=== PATIENT | male | born 1995 | race Caucasian/White ===

== ENCOUNTER 2025-06-28 10:43 | Outpatient (OUT) | payer BC, SELFPAY ==
--- OUTSIDE RECORDS SUMMARY | 2025-06-28 10:00 | XMS_ITS | Encounter Summary ---
Author Organization [facility] Address [address] [place] [address] Care Team Providers Care Temporary Office Assistant Name Role Phone Unavailable Primary Care Provider Unavailabl e Reason for Referral * Consultation (Routine) - Authorized Specialty Diagnoses / Procedures Referred By Contac t Referred To Contact Gastroenterology Diagnoses Rectal bleeding Weight loss Procedures [place] OFFICE/OUTPATIENT NEW HIGH MDM 60 MINUTES Stephanie Morrow NP [address] [facility] [address] [place] [address] Phone: tel: fax: Dawna Flores MD [address] [place] [address], [address], [address] [address] Phone: tel: fax: Referral ID Status Reason Start Date Expiration Date Visits Requested Visits Authorized [id number] Authorized Specialty Services Required 06/28/2025 12/25/2025 1 1 * Consultation (Routine) - Pending Review Specialty Diagnoses / Procedures Referred By Contac t Referred To Contact General Surgery Diagnoses Rectal bleeding Procedures [place] OFFICE/OUTPATIENT NEW HIGH MDM 60 MINUTES Stephanie Morrow NP [address] [facility] [address] [place] [address] Phone: tel: fax: Fawad Santos, DO [address] [facility] [address] [place] [address] Phone: tel: fax: Referral ID Status Reason Start Date Expiration Date Visits Requested Visits Authorized [id number] Pending Review Specialty Services Required 06/28/2025 12/25/2025 1 1 Encounter Details Date Type Department Care Team (Late st Contact Info) Description 06/28/2025 10:00 AM EDT Office Visit [facility] [place] 112 [facility] [address] [place] [address] Stephanie Morrow NP [address] [facility] [address] [place] [address] Screening for lipid disorders (Primary Dx); Rectal bleeding; Weakness of both lower extremities; Pain of right middle finger; Weight loss; Family history of diabetes mellitus Social History Tobacco Use Types Packs/Day Years Used Date Smoking Tobacco: Former Cigarettes 2009 Smokeless Tobacco: Never Tobacco Cessation:Counseling Given: Yes Alcohol Use Standard Drinks/Week Comments Not Currently 0 (1 standard drink = 0.6 oz pur e alcohol) PHQ-2 Answer Date Recorded Patient Health Questionnaire-2 Score 0 06/28/2025 Sex and Gender Information Value Date Recorded Sex Assigned at Not on file Legal Sex Male 11:29 AM EDT Gender Identity Not on file Sexual Orientation Not on file documented as of this encounter Last Filed Vital Signs Vital Sign Reading Time Taken Comments Blood Pressure 120/78 06/28/2025 9:53 AM EDT Pulse 80 06/28/2025 9:53 AM EDT Temperature - - Respiratory Rate 16 06/28/2025 9:53 AM EDT Oxygen Saturation 98% 06/28/2025 9:53 AM EDT Inhaled Oxygen Concentration - - Weight 101 kg (223 lb) 06/28/2025 9:53 AM EDT Height 177.8 cm (5' 10 ) 06/28/2025 9:53 AM EDT Body Mass Index 32 06/28/2025 9:53 AM EDT documented in this encounter Functional Status * Over the past 2 weeks, how often have you been bothered by any of the following problems? Question Answer Date of Assessment Author Little interest or pleasure in doing things Not at all 06/28/2025 9:51 AM EDT STALIN ORELLANA Feeling down, depressed, or hopeless Not at all 06/01 9:51 AM EDT STALIN ORELLANA Patient Health Questionnaire-2 Score 0 06/01 9:51 AM EDT STALIN ORELLANA documented as of this encounter Plan of Treatment Scheduled Orders Name Type Priority Associated Diagnoses Orde r Schedule Comprehensive metabolic panel Lab Routine Rectal bleeding Expected: 06/28/2025 (Approximate), Expires: 06/28/2026 CBC Lab Routine Rectal bleeding Expected: 06/28/2025 (Approximate), Expires: 06/28/2026 Lipid panel Lab Routine Screening for lipid disorders Expected: 06/28/2025 (Approximate), Expires: 06/28/2026 Magnesium Lab Routine Weakness of both lower extremities Expected: 06/28/2025 (Approximate), Expires: 06/28/2026 XR hand 1 or 2 views right Imaging Routine Pain of right middle finger Expected: 06/28/2025, Expires: 06/28/2026 CEA Lab Routine Rectal bleeding Weight loss Expected: 06/28/2025 (Approximate), Expires: 06/28/2026 Scheduled Referrals Name Type Priority Associated Diagnoses Order Schedule Ambulatory referral to General Surgery Outpatient Referral Routine Rectal bleeding Expected: 06/28/2025 (Approximate), Expires: 12/26/2025 Ambulatory referral to Gastroenterology Outpatient Referral Routine Rectal bleeding Weight loss Expected: 06/28/2025 (Approximate), Expires: 12/26/2025 documented as of this encounter Procedures Procedure Name Priority Date/Time Associated Diagnosis Comments POCT GLYCOSYLATED HEMOGLOBIN (HGB A1C) Routine 06/28/2025 10:28 AM EDT Weight loss Family history of diabetes mellitus documented in this encounter Results * POCT glycosylated hemoglobin (Hb A1C) docked device (06/28/2025 10:28 AM EDT) Hemoglobin A1C 5.1 Blood Venous blood specimen / Unknown 06/28/2025 10:28 AM EDT Stephanie Morrow NP POINT OF CARE TEST ENTER/CODIE T ORDERABLES Final Result documented in this encounter Visit Diagnoses Diagnosis Screening for lipid disorders- Primary Rectal bleeding Hemorrhage of rectum and anus Weakness of both lower extremities Pain of right middle finger Weight loss Loss of weight Family history of diabetes mellitus documented in this encounter
--- OUTSIDE RECORDS SUMMARY | 2025-06-28 10:51 | XMS_ITS | Clinical Summary ---
Author Organization [facility] Address [address] [place] [address] Care Team Providers Care Superintendent System Operation Name Role Phone Unavailable Primary Care Provider Unavailabl e Allergies No known active allergies Encounters Date Type Department Care Team Description 06/28/2025 10:00 AM EDT Office Visit [facility] [address] [place] [address] [place] [id number] Stephanie Morrow NP Screening for lipid disorders (Primary Dx); Rectal bleeding; Weakness of both lower extremities; Pain of right middle finger; Weight loss; Family history of diabetes mellitus 06/28/2025 Bamboo flowsheet [facility] [address] [place] [address] [place] [id number] Stephanie Morrow NP 06/28/2025 Travel from Last 3 Months Family History Relation Name Status Comments Father Alive Mother Alive Social History Tobacco Use Types Packs/Day Years [...] on file Sexual Orientation Not on file Last Filed Vital Signs Vital Sign Reading [...] Mass Index 32 06/28/2025 9:53 AM EDT Plan of Treatment Not on file Procedures Procedure Name Priority Date/Time Associated Diagnosis Comments POCT GLYCOSYLATED HEMOGLOBIN (HGB A1C) Routine 06/28/2025 10:28 AM EDT Weight loss Family history of diabetes mellitus from Last 3 Months Results * POCT glycosylated hemoglobin (Hb A1C) docked device (06/28/2025 10:28 AM EDT) Hemoglobin A1C 5.1 Blood Venous blood specimen / Unknown 06/28/2025 10:28 AM EDT Stephanie Morrow RETAIL PRICING COORDINATOR POINT OF CARE TEST ENTER/CODIE T ORDERABLES Final Result from Last 3 Months Insurance
--- OUTSIDE RECORDS SUMMARY | 2025-06-28 10:51 | XMS_ITS | Encounter Summary ---
Author Organization [facility] Address [address] [place] [address] Care Team Providers Care Banquet Server On Call Name Role Phone Unavailable Primary Care Provider Unavailabl e Encounter Details Date Type Department Care Team (Latest Contact Info) Description 06/28/2025 Travel Social History Tobacco Use Types Packs/Day Years Used Date Smoking Tobacco: Former Cigarettes 2009 Smokeless Tobacco: Never Alcohol Use Standard Drinks/Week Comments Not Currently 0 (1 standard drink = 0.6 oz pur e alcohol) PHQ-2 Answer Date Recorded Patient Health Questionnaire-2 Score 0 06/28/2025 Sex and Gender Information Value Date Recorded Sex Assigned at Not on file Legal Sex Male 11:29 AM EDT Gender Identity Not on file Sexual Orientation Not on file documented as of this encounter Functional Status * Over the past 2 weeks, how often have you been bothered by any of the following problems? Question Answer Date of Assessment Author Little interest or pleasure in doing things Not at all 06/28/2025 9:51 AM STALIN RAMIREZ Feeling down, depressed, or hopeless Not at all 06/01 9:51 AM STALIN RAMIREZ Patient Health Questionnaire-2 Score 0 06/01 9:51 AM STALIN RAMIREZ documented as of this encounter Plan of Treatment Not on file documented as of this encounter Visit Diagnoses Not on filedocumented in this encounter
--- OUTSIDE RECORDS SUMMARY | 2025-06-28 10:51 | XMS_ITS | Clinical Summary ---
Author Organization [facility] Address [address] [place] [address] Care Team Providers Care [employer] Construction Supervisor Name Role Phone No, Physician Primary Care Provider Unavailabl e Social History Tobacco Use Types Packs/Day Years Used Date Smoking Tobacco: Never Assessed Sex and Gender Information Value Date Recorded Sex Assigned at Not on file Legal Sex Male 1:05 PM EDT Gender Identity Male 03/01/2021 1:10 PM EDT Sexual Orientation Straight 03/01/2021 1: 10 PM EDT Plan of Treatment Health Maintenance Due Date Last Done Comments Tetanus: Every 10yrs 1995 Wellness Visit 1998 Depression Screening/Follow- Up (PHQ-2/9) 2007 HIV Screening 2010 Hepatitis C Screening 2013 COVID-19 Vaccine (2023-2 5 season) 2025 Influenza Vaccine (#1) 2025 Pneumococcal Vaccine: Ped or At-Risk Aged Out No longer eligible b ased on patient's age to complete this topic Insurance DENTAL DEL[facility] DENT[employer] Care Teams [employer] Supervisor Relationship Specialty Start Date End Date No, Physician [facility] PCP - General 03/01/21
--- OUTSIDE RECORDS SUMMARY | 2025-06-28 10:51 | XMS_ITS | Encounter Summary ---
Author Organization [facility] Address [address] [place] [address] Care Team Providers Care Heavy Machinery Assembler Name Role Phone Unavailable Primary Care Provider Unavailabl e Encounter Details Date Type Department Care Team (Late st Contact Info) Description 06/28/2025 Bamboo flowsheet [facility] [address] [place] [address] [place] [phone] Stephanie Morrow, MANAGER TRAINEE [address] [place] [address] [place] [address] Social History Tobacco Use Types Packs/Day Years [...] on file documented as of this encounter Plan of Treatment Not on file documented as of this encounter Visit Diagnoses Not on filedocumented in this encounter
--- NOTE | 2025-06-28 11:01 | XR_ITS ---
The [address] [address] Patient Name: MUNIR GRIFFITH MRN: [id number] date: 1995 Sex: M Assigned Patient Location: LAB Current Patient Location: LAB Accession/Order Number: [id number] Exam Date: 06/28/2025 11:10 Report Date: 06/28/2025 11:53 At the request of: GUS DESAI Procedure: XR hand RT 2V RIGHT HAND - 2 views COMPARISON: None CLINICAL DATA: Pain at the middle finger of the right hand for week. No injury. AP and lateral views were obtained. There is no acute fracture or dislocation. The joint spaces are maintained. There is slight soft tissue swelling at the proximal aspect of the third finger. No radiopaque foreign bodies or subcutaneous air are noted. XR/XR hand RT 2V IMPRESSION: NO ACUTE BONY FINDINGS. Impression dictated by: Elif Dumont M.D. 06/28/2025 11:53 AM Dictation Location: [place] [address] Electronically authenticated by: [id number] Date: 06/28/2025 11:53
[2025-06-28 11:06] LABS: Hematocrit 39.6 % (42.0-54.0); Hemoglobin 13.7 g/dL (14.0-18.0); Immature Granulocytes Abs Auto 0.01 10^3/uL (0.00-0.03); Immature Granulocytes Pct Auto 0.2 % (0.0-0.5); Lymphocytes Absolute Auto 2.2 10^3/uL (1.2-3.8); Mean Corpuscular HGB Conc 34.6 g/dL (29.9-35.2); Mean Corpuscular Hemoglobin 31.1 pg (25.9-34.0); Mean Corpuscular Volume 89.8 fL (80.0-94.0); Platelet Count 206 10^3/uL (150-450); Red Blood Count 4.41 10^6/uL (4.70-6.10); White Blood Count 5.9 10^3/uL (4.0-11.0)
[2025-06-28 12:05] LABS: Alanine Aminotransferase 23 U/L (16-63); Albumin Globulin Ratio 1.1; Albumin Level 4.2 g/dL (3.4-5.0); Alkaline Phosphatase 64 U/L (46-116); Anion Gap 12.0; Aspartate Amino Transferase 19 U/L (15-37); Blood Urea Nitrogen 10.0 mg/dL (7.0-18.0); Calcium 9.2 mg/dL (8.5-10.1); Carbon Dioxide 29.4 mmol/L (21.0-32.0); Chloride 104 mmol/L (98-107); Cholesterol 205 mg/dL (<=200); Estimated GFR (African America >60 (>=60 mL/min/1.73m^2); Estimated GFR (Non-African Ame >60 (>=60 mL/min/1.73m^2); Globulin 3.7 g/dL; Glucose 89 mg/dL (74-106); HDL Cholesterol 51 mg/dL (40-60); Magnesium 2.0 mg/dL (1.8-2.4); Potassium 4.4 mmol/L (3.5-5.1); Sodium 141 mmol/L (136-145); Total Protein 7.9 g/dL (6.4-8.2); Triglycerides 112 mg/dL (<=150); VLDL CHOLESTEROL 22.4 mg/dL
[2025-06-29 04:07] LABS: CEA 2.0 ng/mL (0.0-4.7)
== END 2025-06-28 10:44 | disposition home or self-care (01) ==
LOC: LAB 10:49
PROVIDERS: PCP Nurse Practitioner Family; Visit Provider Nurse Practitioner Family
DX: K62.5 Hemorrhage of anus and rectum (principal); Z13.220 Encounter for screening for lipoid disorders; R29.898 Other symptoms and signs involving the musculoskeletal system; R63.4 Abnormal weight loss; M79.644 Pain in right finger(s)
CPT/HCPCS: 36415; 73120; 80053; 80061; 82378; 83735; 85025